=== PATIENT | male | born 2000 | race Caucasian/White ===

== ENCOUNTER 2021-06-29 17:28 | Emergency (ER) | payer OTHER, SELFPAY ==
--- NOTE | ~2021-06-29 | XR_ITS ---
EXAMINATION: XR chest 2V 06/29/2021 19:49 INDICATION: Chest palpitations PROCEDURE: 2 view chest COMPARISON: No prior studies for comparison. FINDINGS: The lungs are clear. The cardiomediastinal silhouette is within normal limits. There are no pleural effusions. There is no pneumothorax suspected. IMPRESSION: 1: NO ACUTE CARDIOPULMONARY DISEASE. Reviewed, dictated and finalized at location A.
[2021-06-29 18:02] VITALS: BP 137/88; PULSE 120; RESP 16; TEMP 36.7; O2SAT 97
--- NOTE | 2021-06-29 18:05 | ECG_ITS ---
Measurements Intervals [place] Rate: 111 P: 80 [place]: 149 QRS: 82 QRSD: 81 T: 66 QT: 303 QTc: 413 Interpretive Statements SINUS TACHYCARDIA POSSIBLE RIGHT ATRIAL ENLARGEMENT POSSIBLE LEFT ATRIAL ENLARGEMENT DELAYED PRECORDIAL R/S TRANSITION NONSPECIFIC ST ELEVATION IN ANTEROLATERAL LEADS BORDERLINE T WAVE ABNORMALITY- INFERIOR LEADS BASELINE ARTIFACT- I, II, AVR, AVL, AVF, V1 ABNORMAL ECG Electronically Signed On 06-30-2021 6:37:12 CDT by Javier Song D.O.
[2021-06-29 18:23] LABS: Basophils Absolute Auto 0.1 K/mm3 (0.0-0.1); Basophils Percent Auto 1.3 % (0.2-1.2); Eosinophils Absolute Auto 0.3 K/mm3 (0-0.3); Eosinophils Percent Auto 3.4 % (0-4.4); Hemoglobin 19.7 g/dL (14.0-18.0); Immature Granulocyte Absolute 0.02 K/mm3 (0.00-0.031); Immature Granulocyte Percent A 0.3 % (0-0.5); Lymphocytes Absolute Auto 1.01 K/mm3 (0.9-3.2); Mean Corpuscular HGB Conc 35.7 g/dl (32-36); Mean Corpuscular Hemoglobin 34.5 pg (26-34); Mean Corpuscular Volume 96.7 fl (80-100); Monocytes Absolute Auto 0.6 K/mm3 (0.1-0.6); Monocytes Percent Auto 7.1 % (2.6-8.5); Neutrophils Absolute Auto 5.8 K/mm3 (1.3-6.7); Neutrophils Percent Auto 74.9 % (45.5-73.1); Platelet Count Result 206 k/mm3 (150-375); Red Blood Count 5.71 M/mm3 (4.6-6.20); Red Cell Distribution Width 13.8 % (11.5-14.5); White Blood Count 7.8 K/mm3 (4.5-10.0)
[2021-06-29 18:29] LABS: Hematocrit 55.2 % (42.0-52.0)
[2021-06-29 18:33] LABS: Prothrombin Time 13.1 Seconds (11.1-14.7)
[2021-06-29 18:34] LABS: Partial Thromboplastin Time 22.5 SECONDS (22.3-36.8)
--- NOTE | 2021-06-29 19:23 | ED.ANXIETY ---
HPI - Anxiety General Chief Complaint: Anxiety Stated Complaint: SHAKING, MUSCLES LOCK UP SINCE 1700 Time Seen by Provider: 06/29/21 19:22 Source: patient Mode of arrival: ambulatory Limitations: no limitations History of Present Illness HPI narrative: Patient is a 21-year-old male without previous medical history presenting for evaluation of palpitations. Patient states that today while in the car he had extreme palpitations which caused him to panic. Patient states that he then felt his body tense and lock up. Patient reports anxiety regarding this. He denying any overt chest pain, shortness of breath, does report nausea without vomiting. No abdominal pain or diarrhea. Patient does report daily caffeine energy drinks, daily alcohol use usually 2-3 shots daily, and not much water intake. He also uses e-cigarettes/vaping. He denies drug use. No history of alcohol withdrawal or seizure disorder. Patient denies homicidal or suicidal ideation. Patient states he wanted to be evaluated because he has not experienced that in the past and was worried about his symptoms. He denies any focal weakness or numbness. He has been ambulatory. Related Data Allergies Allergy/AdvReac Type Severity Reaction Status Date / Time No Known Allergies Allergy Unverified 05/26/11 12:42 Review of Systems Review of Systems: CONSTITUTIONAL: Denies fever, chills, or sweats. EYES: Denies visual changes, redness, or discharge. ENT: Denies rhinorrhea, congestion, sore throat, or otalgia. CARDIOVASCULAR: Denies chest pain, reports palpitations without leg edema RESPIRATORY: Denies cough or dyspnea. GASTROINTESTINAL: Denies abdominal pain, reports nausea without vomiting GENITOURINARY: Denies dysuria or hematuria. SKIN: Denies rash or itching. MUSCULOSKELETAL: Denies back pain, joint pain, or myalgia. NEUROLOGIC: Denies headache, numbness, or weakness. PSYCHIATRIC: Reports anxiety, denies depression [facility] Social History Social History (Updated 06/29/21 @ 20:03 by Kelly Mccall MD) Smoking status: Current every day smoker Tobacco type: e-cigarettes/vaping Alcohol intake: current Drinks per week: 10 Substance use: never Occupation/Education: unemployed Gender identity (if verbalized by the patient): Male Exam Narrative: GENERAL: Awake, alert, conversant, anxious appearing HEAD: Normocephalic, atraumatic. EYES: PERRLA and EOMI. ENT: Nares clear, no rhinorrhea or epistaxis. Mucous membranes moist. NECK: Supple. CHEST: No respiratory distress, breathing even and non labored HEART: Rate of 94, sinus rhythm ABDOMEN:Non distended, non tender EXTREMITIES: Normal range of motion. No edema. SKIN: Warm, dry, no rash. NEURO:No focal deficits. Alert and oriented x3. Finger to nose intact bilaterally. EOMs intact without nystagmus. No facial droop/asymmetry noted bilaterally. Grimace intact. Intact sensation in face. Hearing intact bilaterally. Shoulder shrug intact. Strength 5/5 bilateral upper extremities. Strength 5/5 bilateral lower extremities. Reflexes 2+ patellar. Heel to hernandez intact bilaterally. Ambulatory with a narrow base, steady gait, no ataxia. Course Vital Signs Vital signs: Vital Signs Temperature 36.7 C 06/29/21 18:02 Pulse Rate 120 H 06/29/21 18:02 Respiratory Rate 16 06/29/21 18:02 Blood Pressure 137/88 06/29/21 18:02 Pulse Oximetry 97 06/29/21 18:02 Temperature 36.7 C 06/29/21 20:05 Pulse Rate 87 06/29/21 20:05 Respiratory Rate 18 06/29/21 20:05 Blood Pressure 131/78 06/29/21 20:05 Pulse Oximetry 100 06/29/21 20:05 MDM - Anxiety MDM Narrative Medical decision making narrative: Patient presenting for evaluation of palpitations, body locking up. The time of assessment, patient with a normal neurological exam. He is ambulatory. He is quite anxious appearing. After thorough discussion with the patient, he does report daily drinking as well as high amount of caffeine intake. Likel
[2021-06-29] MEDS: SODIUM CHLORIDE 0.9% IV 1,000 ML 999 ML IV CONT (20:02)
[2021-06-29 20:05] VITALS: BP 131/78; PULSE 87; RESP 18; TEMP 36.7; O2SAT 100
[2021-06-29 20:39] LABS: Anion Gap 13 mmol/L (8-16); Blood Urea Nitrogen 9 mg/dL (9-20); Calcium 9.9 mg/dL (8.4-10.2); Carbon Dioxide 24 mmol/L (22-30); Chloride 101 mmol/L (98-107); Estimated CRCL calculation 117 ml/min; Estimated Glomerular Filt Rate > 60; Glucose 99 mg/dL (65-110); Potassium 3.7 mmol/L (3.4-5.0); Sodium 138 mmol/L (137-145)
--- NOTE | 2021-06-29 20:44 | ECG_ITS ---
Measurements Intervals [place] Rate: 93 P: 83 [place]: 141 QRS: 78 QRSD: 86 T: 54 QT: 345 QTc: 431 Interpretive Statements SINUS RHYTHM BASELINE ARTIFACT- I, II, AVR, AVL, V1-V2 NORMAL ECG Electronically Signed On 06-30-2021 6:38:17 CDT by Javier Song D.O.
[2021-06-29 20:49] LABS: Troponin I < 0.012 ng/mL (0.000-0.034)
[2021-06-29] MEDS: FOLIC ACID 1 MG TABLET PO (20:54)
[2021-06-29 21:15] VITALS: BP 128/71; PULSE 81; RESP 16; TEMP 36.7; O2SAT 100
[2021-06-30 00:24] LABS: Folic Acid 2.8 ng/mL (2.76->20)
== END 2021-06-29 21:16 | disposition home or self-care (01) ==
PROVIDERS: Emergency Medicine; Emergency Provider Emergency Medicine
DX: R00.2 Palpitations (principal); E86.0 Dehydration; F17.290 Nicotine dependence, other tobacco product, uncomplicated; R00.0 Tachycardia, unspecified; R94.31 Abnormal electrocardiogram [ECG] [EKG]
CPT/HCPCS: 36415; 71046; 80048; 82607; 82746; 84443; 84484; 85025; 85610; 85730; 93005; 96361; 96374; 99284; A9270; J3411; J3475; J7030

== ENCOUNTER 2025-01-05 12:29 | Emergency (ER) | payer SELFPAY ==
--- NOTE | ~2025-01-05 | XR_ITS ---
XR chest 2V Ordering provider: LOVE Gavin History: 24 years Male with . cough with sob x 1 week. Vapes. . Comparison: June 29, 2021 FINDINGS: MEDIASTINUM: The cardiac silhouette is not enlarged. LUNGS: No infiltrates, effusions or pneumothorax. OTHER: No free air under the diaphragm. IMPRESSION: No acute cardiopulmonary pathology. Reviewed, dictated and finalized at location A.
--- OUTSIDE RECORDS SUMMARY | 2025-01-05 12:37 | XMS_ITS | Continuity of Care Document ---
Author Name [facility] Organization [facility] Care Team Providers Care Beater Out Name Role Phone [facility] Unavailable Unavailable Allergies, Adverse Reactions, Alerts Combined list of allergies from Department of Defense and Veterans Affairs facilities. It does not include entries that were removed or entered in error. Substance Category Reaction Severity Reaction type Status Date Reported Comments Source No Known Allergies Drug allergy (disorder) active 09/14/2019 [place] Immunizations Combined list of available immunizations from the Department of Defense and Veterans Affairs facilities. Immunization Series Date Given Administered By Site Reaction Lot Number CVX Code Drug Shell Worker Status Comments Source influenza, injectable, quadrivalent- pf 2018 [id number] 150 Seqirus complet ed influenza , injectabl e, quadrival ent-pf 07/24/19 Given Ambulat ory Pharmac y Influenza, injectable, quadrivalent, preservative free 1 2018 [id number] 150 Seqirus (SEQ) complet ed Influenza , injectabl e, quadrival ent, preservat hawa free DoD HepB-CpG 2018 [id number] complet ed HepB-CpG 07/16/19 Given Ambulat ory Pharmac y measles/mumps /rubella virus vaccine 2018 [id number] Merck & Company Inc complet ed measles/m umps/rube lla virus vaccine 07/16/19 Given Ambulat ory Pharmac y measles, mumps and rubella virus vaccine 2 2018 [id number] Merck (MSD) complet ed measles, mumps and rubella virus vaccine DoD Hepatitis B vaccine (recombinant) , CpG adjuvanted 2 2018 [id number] Dynavax, Inc. (DVX) complet ed Hepatitis B vaccine (recombin ant), CpG adjuvante d DoD varicella virus vaccine 1 2018 [id number] 21 Unknown (UNK) Not Given varicella virus vaccine DoD hepatitis A vaccine, adult dosage 1 2018 [id number] 52 Unknown (UNK) Not Given hepatitis A vaccine, adult dosage DoD HepB-CpG 2018 [id number] Unknown complet ed HepB-CpG 05/29/19 Given Ambulat ory Pharmac y adenovirus vaccine, live 2018 [id number] 143 Teva Pharmaceutica ls complet ed adenoviru s vaccine, live 05/29/19 Given Ambulat ory Pharmac y measles/mumps /rubella virus vaccine 2018 [id number] Merck & Company Inc complet ed measles/m umps/rube lla virus vaccine 05/29/19 Given Ambulat ory Pharmac y measles, mumps and rubella virus vaccine 1 2018 [id number] 03 Merck (MSD) complet ed measles, mumps and rubella virus vaccine DoD Adenovirus, type 4 and type 7, live, oral 1 2018 [id number] 5 143 Feng [facility] complet ed Adenoviru s, type 4 and type 7, live, oral DoD Hepatitis B vaccine (recombinant) , CpG adjuvanted 1 2018 [id number] Unknown (UNK) comple t ed Hepatitis B vaccine (recombin ant), CpG adjuvante d DoD tetanus, diphtheria, acellular pertu is 2018 [id number] sanofi pasteur complet ed tetanus, diphtheri a, acellular pertussis 05/27/19 Given Ambulat ory Pharmac y meningococcal A,C,Y,W-135 (MCV4P) 2018 [id number] 114 Merck & Company Inc complet ed meningoco ccal A,C,Y,W-1 35 (MCV4P) 05/27/19 Given Ambulat ory Pharmac y poliovirus vaccine, inactivated 2018 [id number] 10 sanofi pasteur complet ed polioviru s vaccine, inactivat ed 05/27/19 Given Ambulat ory Pharmac y poliovirus vaccine, inactivated 1 2018 [id number] 10 Sanofi Pasteur (PMC) complet ed polioviru s vaccine, inactivat ed DoD meningococcal polysaccharid e (groups A, C, Y and W-135) diphtheria toxoid conjugate vaccine (MCV4P) 1 2018 [id number] 114 Merck (MSD) complet ed meningoco ccal polysacch aride (groups A, C, Y and W-135) diphtheri a toxoid conjugate vaccine (MCV4P) DoD tetanus toxoid, reduced diphtheria toxoid, and acellular pertu is vaccine, adsorbed 1 2018 [id number] 115 Sanofi Pasteur (PMC) [facility] ed tetanus toxoid, reduced diphtheri a toxoid, and acellular pertussis vaccine, adsorbed DoD Vital Signs Combined list of inpatient and outpatient Vital Signs from Department of Defense and Veterans Affairs, ranging from 12 months to all on record, depending upon the facility. Vital Sign Value Date Comments Source Peripheral Pulse Rate 80 bpm 11/30/2024 11:13:[address] [place] [address] Systolic Blood Pressure 126 mm[Hg] 11/30/2024 11:13:[address] [place] [address] Diastolic Blood Pressure 71 mm[Hg] 11/30/2024 11:13:[address] [place] [address] Encounters Combined list of: 1) Encounters from Department of Veterans Affairs facilities going backup to the last 18 months, not all [place] inpatient encounters are included; 2) Encounters from the Department of [facility] facilities going backup to 280 months. Location Location Details Encounter Type Encounter Number Reason For Visit Attending Provider ADM Date DC Date Status Disposition Source [place] [place] [id number] Notes Entered by: ALISON GREEN 28 May 2019 0923 ------- ------- ------- ------- -- Hearing test ALISON GREEN 05/28 Released w/o Limitations [place] [place] OUTPATIENT [id number] MATT ALEXANDER ON 06/01 Released w/o Limitations [place] [place] [place] [facility] [id number] Notes Entered by: JOSHUA AVILA 09 Jul 2019 0818 ------- ------- ------- ------- -- RENZO ALVARENGA 07/09 Released w/o Limitations [place] [place] OUTPATIENT [id number] Notes Entered by: FREDY MICHAEL 16 Jul 2019 1028 ------- ------- ------- ------- -- IMM-HEP B/MMR BRENDEN ZALDIVAR 07/16 Released w/o Limitations [place] OUTPATIENT [id number] Notes Entered by: TIERA BOYCE ED, I 24 Jul 2019 1350 ------- ------- ------- ------- -- IMM-FLU SHOT GRACE NGUYEN 07/24 Released w/o Limitations [place] OUTPATIENT [id number] Notes Entered by: ANTIONETTE DANIEL 14 Sep 2019 1032 ------- ------- ------- ------- -- HILARIA Hodge CH11 MAY SINGH 09/14 Released w/o Limitations [place]) No Facility Access History [id number] 04/27 No Facilit y Access [address] [place] [address] Between Visit [id number] 04/27 Discharge Disposition: Home or Self Care [address] [place] [address] [place] Readiness [id number] 04/30 Discharge Disposition: Released Without Limitations [address] [place] [address] Between Visit [id number] 11/10 Discharge Disposition: Home or Self Care [address] [place] [address] [place] Readiness [id number] 11/27 Discharge Disposition: Released Without Limitations [address] [place] [address] Procedures Combined list of: 1) Procedures from Department of Veterans Affairs facilities going back up to thelast 18 months, not all VA non-surgical procedures are included; 2) All procedures from the Department of Defense facilities. Procedure Procedure Type Code Date Perfomer Comments Sourc e No data available for this section Ambulato ry Pharmacy Threshold Audiogram (Pure Tone) Automated Threshold Audiogram (Pure Tone) Automated 0208T ALISON GREEN [facility] Screening Test Of Visual Acuity, Quantitative, Bilateral Screening Test Of Visual Acuity, Quantitative, Bilateral 30679 MATT ALEXANDER DoD Immunization Administration Each Additional Vaccine Immunization Administration Each Additional Vaccine 75756 RENZO TORRES T DoD Immunization Administration One Vaccine Immunization Administration One Vaccine 92450 RENZO TORRES DoD Tdap Vaccine Tdap Vaccine 69728 RENZO TORRES Visit for an IM injection of 0.5mL of Boostrix (Tetanus and Diphtheria Toxoids and Acellular Pertussis). Was given in the Right Deltoid. Patient was observed for 15 min with no adverse reactions. DoD Vaccines Viral Polio, Inactivated (Salk) Vaccines Viral Polio, Inactivated (Salk) 55687 RENZO TORRES Visit for an IM injection of 0.5mL of IPOL (Poliovirus Vaccine Inactivated). Was given in the Right Deltoid. Patient was observed for 15 min with no adverse reactions. DoD Vaccines Viral Measles, Mumps and Rubella, Live Vaccines Viral Measles, Mumps and Rubella, Live 20960 RENZO TORRES Visit for a SQ injection of 0.5 mL of MMR (Measeals, Mumps, and Rubella,). Was given in the Right Triceps. Patient was observed for 15 minutes with no adverse reactions. Roxanne Lakhani Supervised Injection Intramuscular Antibiotic Supervised Injection Intramuscular Antibiotic 21351 RENZO TORRES Injection, penicillin g benzathine, 100,000 units RENZO TORRES Visit for an IM injection of 1.2 million/units per 2mL of Bicillin L-A (Penicillin G Benzathine injectable suspension). Was given in the Left Upper Quadrant, Left Gluteal. Patient observed for 15min with no adverse reactions. DoD Immunization Admin Intranasal / Oral Each Additional Vaccine Immunization Admin Intranasal / Oral Each Additional Vaccine 45887 RENZO TORRES DoD Vaccines Adenovirus Type 4 Live, For Oral Use Vaccines Adenovirus Type 4 Live, For Oral Use 22847 RENZO TORRES T A single vaccine dose administered orally. DoD Vaccines Adenovirus Type 7 Live, For Oral Use Vaccines Adenovirus Type 7 Live, For Oral Use 75655 RENZO TORRES T A single vaccine dose administered orally. DoD Vaccines Viral Measles, Mumps and Rubella, Live Vaccines Viral Measles, Mumps and Rubella, Live 20727 BRENDEN ZALDIVAR Measles, Mumps, and Rubella Virus Vaccine Live(MMR) 0.5mL administered subcutaneous in left triceps, patient observed x 15 minutes post injection with no side effects and or adverse reactions noted. [facility] INFLUENZA VIRUS VACCINE, QUADRIVALENT (IIV4), SPLIT VIRUS, PRESERVATIVE FREE, 0.5 ML DOSAGE, FOR INTRAMUSCULAR USE 2018 DoD MEASLES, MUMPS AND RUBELLA VIRUS VACCINE (MMR), LIVE, FOR SUBCUTANEOUS USE 2018 DoD ADENOVIRUS VACCINE, TYPE 7, LIVE, FOR ORAL USE 2018 [facility] SCREENING TEST OF VISUAL ACUITY, QUANTITATIVE, BILATERAL 2018 [facility] PURE TONE AUDIOMETRY (THRESHOLD), AUTOMATED; AIR ONLY 2018 DoD Social History Combined list of available smoking, tobacco, and other social history from Department of Defense and Veterans Affairs facilities. Social History Type Response Date Comment Sourc e Sexual Orientation Ambula tory Pharmacy Gender identity Ambulator y Pharmacy Sex Representation Male (finding) Un known Organization This section is an empty soc ial history section. [facility] Assessment and Plan Combined list of future care activities from Department of Defense and Veterans Affairs facilities (e.g., assessment and plan notes, appointments, orders, and referrals). Additional future care activities may be listed in the Plan of Care section. Result Assessment and Plan Date Source Assessment and Plan Extracted from:Title : Education Note Author: PEPPER KASPER Date: 11/30/24 Extracted from:Title: Education Note Author: MATT PULIDO MD Date: 05/01/24 01/05/[address] [place] [address] Functional Status Combined list of recent functional and cognitive assessments recorded at [facility] [place] Functional Walsh Measurement (FIM) Scale: 1 = Total Assistance (Subject = 0% +), 2 = Maximal Assistance (Subject = 25% +), 3 = Moderate Assistance (Subject = 50% +), 4 = Minimal Assistance (Subject = 75% +), 5 = Supervision, 6 = Modified Walsh (Device), 7 = Complete Walsh (Timely, Safely). Assessment Date/Time Source Assessment Type Assessment Skill Assessment Score Assessment Details No data available for this section
--- OUTSIDE RECORDS SUMMARY | 2025-01-05 12:37 | XMS_ITS | Clinical Summary ---
Author Organization [facility] Address [address] [place] [address] Care Team Providers Care Client Integration Manager Name Role Phone None, Provider MD Primary Care Provider Unavaila ble Allergies No known active allergies Medications ondansetron (ZOFRAN-ODT) 4 MG disintegrating tablet Take 1 tablet (4 mg total) by mouth every 8 (eight) hours as needed. 10 tablet 2 Active famotidine (PEPCID) 20 MG tablet Take 1 tablet (20 mg total) by mouth 2 (two) times daily as needed. 20 tablet 2 Active Active Problems Problem Noted Date Diagnosed Date Acute pancreatitis (HHS/HCC) 03/14/2022 Pancreatitis (HHS/HCC) 12/09/2021 Social History Tobacco Use Types Packs/Day Years Used Date Smoking Tobacco: Every Day Smokeless Tobacco: Current Tobacco Cessation:Ready to Q uit: Not Asked; Counseling Given: Not Answered Alcohol Use Standard Drinks/Week Comments Yes 0 (1 standard drink = 0.6 oz pure alcohol) multiple fireball shot daily- since age 16 Sex and Gender Information Value Date Recorded Sex Assigned at Not on file Legal Sex Male 6:36 PM CDT Gender Identity Not on file Sexual Orientation Not on file Last Filed Vital Signs Vital Sign Reading Time Taken Comments Blood Pressure 119/75 08/10/2022 8:30 PM PATROL DEPUTY SHERIFF Pulse 77 08/10/2022 8:30 PM PATROL DEPUT[employer] SHERIFF Temperature 36.9 C (98.4 F) 08/10/2022 4:56 PM PATROL DEPUT[employer] SHERIFF Respiratory Rate 16 08/10/2022 8:30 PM PATROL DEPUTY SHERIFF Oxygen Saturation 99% 08/10/2022 8:30 PM PATROL DEPUTY SHERIFF Inhaled Oxygen Concentration - - Weight 74.8 kg (165 lb) 08/10/2022 4:56 PM PATROL DEPUTY SHERIFF Height 182.9 cm (6') 08/10/2022 4:56 PM PATROL DEPUTY SHERIFF Body Mass Index 22.38 08/10/2022 4:56 PM PATROL DEPUTY SHERIFF Plan of Treatment Health Maintenance Due Date Last Done Comments Annual Physical 02/06/2003 DTaP, Tdap and Td Vaccines (5 - Tdap) 02/06/2011 06/25/2001, 2000, 2000, Additional history exists HPV Vaccines (2 - Male 2-dose series) 09/20/2014 03/20/2014 Pneumococcal Vaccine: Pediatrics (0 to 5 Years) and At-Risk Patients (6 to 49 Years) (1 of 2 - PCV) 02/06/2019 2000, 2000, 2000 COVID-19 Vaccine ( season) 2024 Hepatitis B Vaccines Completed 2000, 2000, 2000 Meningococcal Vaccine Completed 06/17/2017 Hepatitis C Completed 12/12/2021 Meningococcal B Vaccine Aged Out No l onger eligible based on patient's age to complete this topic RSV Immunizations Under 20 Months Aged Out No longer eligible based on patient's age to complete this topic Goals Goal Patient Goal Type Associated Problems Recent Progress Patient-Stated? Author Health - patient able to perform ADLs independently General No Tanesha Galloway, aircraft dispatcher Procedure Name Priority Date/Time Associated Diagnosis Comments HEPATITIS PANEL,ACUTE Routine 12/12/2021 9:19 PM CDT from Last 3 Months or Most Recently Relevant to Health Maintenance Results * HEPATITIS PANEL,ACUTE (12/12/2021 9:19 PM CDT) HEPATITIS B SURFACE AG NON-REACTI VE NON-REACTI VE 12/12/2021 11:44 PM CDT [facility] HEP B CORE IGM NON-REACTI VE NON-REACTI VE 12/12/2021 11:44 PM CDT [facility] HAV IGM NON-REACTI VE NON-REACTI VE 12/12/2021 11:46 PM CDT [facility] HEPATITIS C AB NON-REACTI VE NON-REACTI VE 12/12/2021 11:44 PM CDT [facility] 12/12/2021 9:19 PM CDT Leatha Alcantar DO LABORATORY Final Result [facility] [address] [place] [address], from Last 3 Months or Most Recently Relevant to Health Maintenance Insurance * Guarantor: Mauro Sams Account Type Relation to Patient Date of Phone Billing Address Personal/Family Self [address] [place] [address] [facility] Advance Directives * Full Code (Latest Code Status on File) Date Activated Date Inactivated Comments 03/14/2022 4:29 AM 03/16/2022 12:50 PM * Full Code Date Activated Date Inactivated Comments 12/09/2021 8:25 PM 12/16/2021 3:10 PM Care Teams Client Integration Manager Relationship Specialty Start Date End Date None, Provider, PCP - General 12/09/21
--- OUTSIDE RECORDS SUMMARY | 2025-01-05 12:37 | XMS_ITS | Clinical Summary ---
Author Organization [facility] Address [address] [place] [address] Phone Care Team Providers Care Radiator Specialist Name Role Phone Provider, None Primary Care Provider Unavailabl e Provider, Unknown Unavailable Unavailable Social History Tobacco Use Types Packs/Day Years Used Date Smoking Tobacco: Never Assessed Sex and Gender Information Value Date Recorded Sex Assigned at Not on file Legal Sex Male 11:41 AM CDT Gender Identity Not on file Sexual Orientation Not on file Plan of Treatment Health Maintenance Due Date Last Done Comments Hepatitis C Virus (HCV) Screening 2000 Human Papillomavirus (HPV) Immunization (2 - Male 2-dose series) 09/20/2014 03/20/2014 Influenza Immunization (#1) 05/03/202407/04, 06/17/2017, 05/15/2016 SARS-COV-2 Immunization ( season) 2024 Respiratory Syncytial Virus (RSV) Immunization (Adult) (1 - 1-dose 75+ series) 02/06/2075 Pneumococcal Immunization Combined Aged Out 2000, 2000, 2000 No longer eligible based on patient's age to complete this topic Meningococcal Immunization (ACWY) Completed 05/27/2019, 06/17/2017 TdaP Immunization Completed 05/27/2019 Hepatitis B Immunization Completed 019, 05/29/2019, 2000, Additional history exists Rotavirus Immunization Aged Out No lo nger eligible based on patient's age to complete this topic Insurance * Guarantor: Mauro Alvarado Account Type Relation to Patient Date of Phone Billing Address Personal/Family Self [address] [place] [address] * Guarantor: Mauro Alvarado Account Type Relation to Patient Date of Phone Billing Address Personal/Family Self [address] [place] [address] [facility] Care Teams Radiator Specialist Relationship Specialty Start Date End Date Provider, None [place] PCP - General 02/25/24 Provider, Unknown UNKNOWN 02/25/24
[2025-01-05 12:38] VITALS: BP 147/63; PULSE 75; RESP 18; TEMP 36.7; O2SAT 100
[2025-01-05 12:56] LABS: EDCOVIDSCREEN Negative (Negative); EDINFLUASCREEN Negative (Negative); EDINFLUBSCREEN Negative (Negative)
[2025-01-05] MEDS: dexAMETHasone SOD PHOS INJ 10 MG/ML 1 ML VIAL PO (13:33)
--- NOTE | 2025-01-05 13:33 | ED.GENADULT ---
HPI - General Adult General Chief complaint: Upper Respiratory Infection Stated complaint: Sore Throat/Low Back Pain/Shortness of Breath Source: patient Mode of arrival: ambulatory Limitations: no limitations History of Present Illness HPI narrative: Pt presents for evaluation of sick symptoms. Symptom onset last week. Reports shortness of breath and occasional cough. At times he feels like his throat is closing. He also has fatigue, body aches and some nausea. He denies any fever, chills, vomiting or diarrhea. No recent sick contacts to his knowledge. He does vape. He denies cigarette and marijuana use. He has tried taking tylenol PM for his symptoms. Related Data Allergies Allergy/AdvReac Type Severity Reaction Status Date / Time No Known Allergies Allergy Verified 01/05/25 12:47 Review of Systems Review of Systems: CONSTITUTIONAL: Reports fatigue. Denies fever, chills, or sweats. EYES: Denies visual changes, redness, or discharge. ENT: Reports sensation that his throat is closing CARDIOVASCULAR: Denies chest pain, palpitations, or edema. RESPIRATORY: Reports shortness of breath. GASTROINTESTINAL: Reports nausea. Denies abdominal pain, vomiting, or diarrhea. GENITOURINARY: Denies dysuria or hematuria. SKIN: Denies rash or itching. MUSCULOSKELETAL: Reports generalized body aches. NEUROLOGIC: Denies headache, numbness, dizziness, or weakness. PSYCHIATRIC: Denies anxiety or depression. [facility] Past Medical History Medical History (Updated 01/05/25 @ 14:03 by Florin Hurtado, ASSISTANT PROFESSOR OF ANTHROPOLOGY, ) No pertinent past medical history Surgical History Surgical History No pertinent past surgical history Family History Family History Mother Family history non-contributory Social History Social History Smoking status: Current every day smoker Tobacco type: e-cigarettes/vaping Alcohol intake: current Drinks per week: 10 Substance use: never Occupation/Education: unemployed Gender identity (if verbalized by the patient): Male Exam Narrative: GENERAL: Well-appearing, well-nourished, and in no acute distress. HEAD: Normocephalic, atraumatic. EYES: PERRLA and EOMI. ENT: Nares clear, no rhinorrhea or epistaxis. Mucous membranes moist. Oropharynx without tonsillar hypertrophy exudate or other lesions. Bilateral TMs pearly skinner nonbulging NECK: Supple. No adenopathy or masses. No carotid bruits or JVD CHEST: Clear to auscultation. No respiratory distress. No wheezes rales or rhonchi HEART: Regular rate and rhythm. No murmur heard. Normal peripheral pulses. ABDOMEN: Soft, nontender, nondistended, normal active bowel sounds. EXTREMITIES: Normal range of motion. No edema. SKIN: Warm, dry, no rash. NEURO: No focal deficits. Alert and oriented x3. PSYCH: Normal mood and affect. Course Course Emergency Course: This is a 24-year-old male who presented for evaluation of sick symptoms. COVID, influenza, strep, mono and CXR negative. He has no evidence of airway compromise on exam. He was given Decadron due to his subjective complaints of feeling like his throat was closing, although he was not experiencing that nor demonstrating that on my evaluation today. Exam is consistent with viral URI. Will dc with prednisone and albuterol. Increase hydration. [id number] agents for symptom management. Follow up with primary provider. Go to the ER worsening symptoms. Patient in agreement with plan of care. Level of Care: Express Care Visit Vital Signs Vital signs: Vital Signs Temperature 36.7 C 01/05/25 12:38 Pulse Rate 75 01/05/25 12:38 Respiratory Rate 18 01/05/25 12:38 Blood Pressure 147/63 H 01/05/25 12:38 Pulse Oximetry 100 01/05/25 12:38 Oxygen Delivery Room Air 01/05/25 12:38 Temperature 36.7 C 01/05/25 12:38 Pulse Rate 75 01/05/25 12:38 Respiratory Rate 18 01/05/25 12:38 Blood Pressure 147/63 H 01/05/25 12:38 Pulse Oximetry 100 01/05/25 12:38 Oxygen Delivery Room Air 01/05/25 12:38 Medical Decision Making Vital Signs Vital Signs: Vital Signs Temperature 36.7 C 01/05/25 12:38 Pulse Rate 75 01/05/25 12:38 Respiratory Rate 18 01/05/25 12:38 Blood Pressure 147/63 H 01/05/25 12:38 Pulse Oximetry 100 01/05/25 12:38 Oxygen Delivery Room Air 01/05/25 12:38 Temperature 36.7 C 01/05/25 12:38 Pulse Rate 75 01/05/25 12:38 Respiratory Rate 18 01/05/25 12:38 Blood Pressure 147/63 H 01/05/25 12:38 Pulse Oximetry 100 01/05/25 12:38 Oxygen Delivery Room Air 01/05/25 12:38 Lab Data Labs: Lab Results 01/05/25 01/05/25 01/05/25 Range/Units 12:54 13:39 13:42 POC Monoscreen Negative (Positive) POC Influenza A Ag Negative (Negative) POC Influenza B Ag Negative (Negative) POC SARS CoV-2 Ag Negative (Negative) POC Grp A Strep Screen Negative (Negative) Imaging Data Radiologist's impression: XR chest 2V Ordering provider: LOVE Gavin History: 24 years Male with . cough with sob x 1 week. Vapes. . Comparison: June 29, 2021 FINDINGS: MEDIASTINUM: The cardiac silhouette is not enlarged. LUNGS: No infiltrates, effusions or pneumothorax. OTHER: No free air under the diaphragm. IMPRESSION: No acute cardiopulmonary pathology. Discharge Plan Discharge Clinical Impression: Upper respiratory infection, viral Patient Disposition: Home Condition: Stable Instructions: Antibiotic Form, Upper Respiratory Infection in Children (ED), Viral Syndrome (ED) Patient Language: Arabic Prescriptions: New prednisone 50 mg tablet 50 mg PO DAILY Qty: 5 0RF albuterol sulfate [Ventolin HFA] 90 mcg/actuation HFA aerosol inhaler 2 puff inhalation QID PRN (Reason: shortness of breath or wheezing) Qty: 8.5 0RF Follow-up/Referrals: Juanito Bloom MD [Physician] - Time of Disposition: 14:04
[2025-01-05 13:41] LABS: EDMONONEGPOS Negative (Positive)
[2025-01-05 13:44] LABS: EDSTREPNEGPOS1 Negative (Negative)
== END 2025-01-05 14:10 | disposition home or self-care (01) ==
PROVIDERS: Emergency Provider Nurse Practitioner
DX: J06.9 Acute upper respiratory infection, unspecified (principal); Z20.822 Contact with and (suspected) exposure to COVID-19; F17.290 Nicotine dependence, other tobacco product, uncomplicated
CPT/HCPCS: 36416; 71046; 86308; 87081; 87426; 87804; 87880; 99213; G0463; J1100